=== PATIENT | female | born 1980 | race Asian ===

== ENCOUNTER 2017-04-25 19:26 | Emergency (ER) | payer BC, OTHER ==
[~2017-04-25] VITALS: Ht 160 cm; Wt 63.9 kg
[~2017-04-25 19:26] MED LIST: IBUP-1222 PO; None per pt
[2017-04-25 19:27] VITALS: BP 128/80
[2017-04-25] MEDS ORDERED: MAALOX/HYOSCYAMINE/LIDOCAINE 45 ML BTL PO ONE (20:00)
[2017-04-25] MEDS ORDERED: FAMOTIDINE 20 MG TABLET PO ONE (20:00)
[2017-04-25 20:20] LABS: ASPARTATE AMINO TRANSFERASE 14 U/L (15-37); BLOOD UREA NITROGEN 11 mg/dL (7-18)
[2017-04-25] MEDS ORDERED: FAMOTIDINE 20 MG TABLET ONE (20:32)
[2017-04-25] MEDS ORDERED: MAALOX/HYOSCYAMINE/LIDOCAINE 45 ML BTL ONE (20:32)
== END 2017-04-25 21:27 | disposition home or self-care (01) ==
LOC: ED 21:21
DX: K27.3 Acute peptic ulcer, site unspecified, without hemorrhage or perforation (principal); F17.200 Nicotine dependence, unspecified, uncomplicated; Z90.49 Acquired absence of other specified parts of digestive tract; Z98.51 Tubal ligation status
CPT/HCPCS: 36415; 80053; 83690; 84703; 85025; 99284